=== PATIENT | male | born 1990 | race American Indian/Alaskan Native ===

== ENCOUNTER 2018-11-11 15:25 | Emergency (ER) | payer SELFPAY ==
[2018-11-11 16:11] VITALS: BP 135/95
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
[2018-11-11] MEDS ORDERED: PERCOCET 5/325 PO ONE (16:28)
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
== END 2018-11-11 18:29 | disposition home or self-care (01) ==
LOC: ED 15:25
DX: S52.022A Displaced fracture of olecranon process without intraarticular extension of left ulna, initial encounter for closed fracture (principal); F17.200 Nicotine dependence, unspecified, uncomplicated; F12.90 Cannabis use, unspecified, uncomplicated; Z79.899 Other long term (current) drug therapy; Y08.02XA Assault by strike by baseball bat, initial encounter; Y93.89 Activity, other specified; Y92.89 Other specified places as the place of occurrence of the external cause; Y99.8 Other external cause status
CPT/HCPCS: 99283

== ENCOUNTER 2018-11-11 22:03 | Emergency (ER) | payer SELFPAY ==
[2018-11-11 22:07] VITALS: BP 154/102
[2018-11-11] MEDS ORDERED: IBUPROFEN PO ONE ×2 (22:11→22:15)
[2018-11-11] MEDS ORDERED: IBUPROFEN ONE (22:15)
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
== END 2018-11-11 22:27 | disposition home or self-care (01) ==
LOC: ED 22:03
DX: S52.022A Displaced fracture of olecranon process without intraarticular extension of left ulna, initial encounter for closed fracture (principal); X58.XXXA Exposure to other specified factors, initial encounter; Y93.89 Activity, other specified; Y92.89 Other specified places as the place of occurrence of the external cause; Y99.8 Other external cause status
CPT/HCPCS: 99282